=== PATIENT | male | born 1990 | race Asian ===

== ENCOUNTER 2016-08-05 00:10 | Emergency (ER) | payer OTHER ==
[~2016-08-05] VITALS: Ht 162.6 cm; Wt 59.0 kg
[2016-08-05 01:00] LABS: EOSINOPHIL (%) 2.2 % (0-5); EOSINOPHIL COUNT 0.1 K/uL (0-0.3); HEMATOCRIT 45.1 % (38.0-50.0); IMMATURE GRANULOCYTE (%) 0.5 % (0.0-0.7); IMMATURE GRANULOCYTE COUNT 0.3 K/uL; LYMPHOCYTE COUNT 2.3 K/uL (1.0-2.8); MCH 31.1 PG (29.0-34.0); MCHC 35.3 G/DL (30.0-36.0); MCV 88.3 FL (86-99); MEAN PLAT.VOLUME 8.9 uM^3 (9.0-12.4); MONOCYTE COUNT 0.6 K/uL (0-0.8); NEUTROPHIL (%) 51.2 % (45-76); NEUTROPHIL COUNT 3.2 K/uL (1.8-6.4); PLATELET COUNT 384 K/uL (156-360); RBC DIS.WIDTH-CV 12.5 % (11.8-14.6); RBC DIS.WIDTH-SD 39.7 % (39-53); RED BLOOD COUNT 5.11 M/uL (4.00-5.50); WHITE BLOOD COUNT 6.3 K/uL (4.1-10.2)
[2016-08-05 01:09] LABS: AMYLASE 112 IU/L (1-118); CHLORIDE 107 mEq/L (99-109); POTASSIUM 4.5 mEq/L (3.7-5.4); SODIUM 141 mEq/L (136-147)
[2016-08-05 01:11] LABS: GLUCOSE 106 mg/dL (70-99)
[2016-08-05 01:12] LABS: ANION GAP 14 MEQ/L (2-14)
[2016-08-05 01:14] LABS: SERUM ETHYL ALCOHOL 192 mg/dL
[2016-08-05 01:15] LABS: GFR ESTIMATE (CALCULATED) > 59 mL/min/; UREA NITROGEN (BUN) 10 mg/dL (9-23)
[2016-08-05 01:18] LABS: LIPASE 95 U/L (1.0-51.0)
[2016-08-05] MEDS ORDERED: MOTRIN600 MG PO (03:00)
[2016-08-05] MEDS ORDERED: FLEXERIL5 MG PO (03:00)
[2016-08-05 03:30] VITALS: BP 138/88
== END 2016-08-05 03:17 | disposition home or self-care (01) ==
LOC: EME 00:10 → EDBD 00:10 → EME 03:17
PROVIDERS: Emergency Medicine
PROC: 3E0234Z Introduction of Serum, Toxoid and Vaccine into Muscle, Percutaneous Approach (ICD-10-PCS; principal; 2016-08-05)
DX: S20.219A Contusion of unspecified front wall of thorax, initial encounter (principal); S00.81XA Abrasion of other part of head, initial encounter; F17.200 Nicotine dependence, unspecified, uncomplicated; V49.40XA Driver injured in collision with unspecified motor vehicles in traffic accident, initial encounter; Z23 Encounter for immunization
CPT/HCPCS: 71260; 74177; 80048; 81003; 82150; 83690; 85025; 86850; 86900; 86901; 99281; 99285; G0480; J1885; J2270; J2405; J7030